=== PATIENT | female | born 1980 | race Caucasian/White ===

== ENCOUNTER 2016-10-11 14:38 | Emergency (ER) | payer SELFPAY ==
[~2016-10-11] VITALS: Ht 167.6 cm; Wt 105.0 kg
[2016-10-11 14:40] VITALS: Ht 167.6 cm; Wt 105.0 kg
[2016-10-11] MEDS ORDERED: morphine 4 MG/ML VIAL IV STA (15:09)
[2016-10-11] MEDS ORDERED: ONDANSETRON 4 MG INJ IV STA (15:09)
--- NOTE | 2016-10-11 15:25 | ERD ---
ER Documentation Chief Complaint Date/Time DATE: 10/11/16 TIME: 15:23 Chief Complaint Right eye pain HPI 36-year-old female comes in with right eye redness and discharge for the past 3 days. Patient denies any history of diabetes, she has been around other sick contacts at home, she is visiting from [place]. Family members have had URI symptoms including "pinkeye", she also developed a cough, congestion as well as right eye irritation and discharge. She states that the swelling has increased in the right lower eyelid. She has has yellow to white greenish discharge, as well as photophobia, notes mild pain with movement and most of irritation from the right lower eyelid. She denies fevers with this. ROS All systems reviewed and are negative except as per history of present illness. Medications Home Meds Active Scripts Gentamicin Sulfate* (Gentafair* Ophth) 0.3% - 5 Ml Drops, 1 DROP RIGHT EYE Q4, # 1 EA Prov:AMIRA DENT PA-C 10/11/16 Sulfamethoxazole-Trimethoprim* (Bactrim* DS) 800-160 Mg Tab, 1 TAB PO BID for 10 Days, TAB Prov:AMIRA DENT PA-C 10/11/16 Amoxicillin/Potassium Clav (Amox-Clav 875-125 mg Tablet) 875-125 mg Tab, 1 TAB PO BID for 10 Days, #20 TAB Prov:AMIRA DENT PA-C 10/11/16 Allergies Allergies: Coded Allergies: No Known Allergy (Unverified , 09/17/11) PMhx/Soc Medical and Surgical Hx: pt denies Medical Hx, pt denies Surgical Hx History of Surgery: No Anesthesia Reaction: No Hx Neurological Disorder: No Hx Respiratory Disorders: No Hx Cardiac Disorders: No Hx Psychiatric Problems: No Hx Miscellaneous Medical Probl: No Hx Alcohol Use: No Hx Substance Use: No Hx Tobacco Use: Yes (3cig/day) Smoking Status: Current every day smoker Physical Exam Vitals Vital Signs Date Time Temp Pulse Resp B/P Pulse Ox O2 Delivery O2 Flow Rate FiO2 10/11/16 14:40 98.7 100 18 139/87 98 Physical Exam \\General: Well-developed, well-nourished. The patient appears in no acute distress. HEENT: Head is normocephalic, atraumatic. No scleral icterus. Pupils are equal , round, and reactive. Oral mucous membranes are moist. No pharyngeal erythema. Eye Exam: OXO Visual Gracia: Intact in all four quadrants bilaterally Lac ducts/glands: Right lower eyelid in the lateral half is swollen, mildly fluctuant. Tender to palpation. Draining pus. Lids w/ evertion: Normal, no foreign body Conj/Melrose: erythematous, negative Fluorescein/Justyna's Anterior Chamber: Clear Tonopen readings: 24 and 26 Neck: Supple. Nontender. Lungs: Clear to auscultation. Normal air movement. Heart: Regular rate and rhythm. S1 and S2 are normal. No murmurs, gallops, or rubs. Abdomen: Soft, nontender, nondistended. Bowel sounds are normoactive. Extremities: No clubbing or cyanosis. Normal pulses. Moving extremities x 4. No weakness. Neurologic: Alert and oriented 3. No focal deficits. Skin: Normal turgor. No rash or lesions. Result Diagram: 10/11/16 1530 10/11/16 1530 Results 24 hrs Laboratory Tests Test 10/11/16 15:30 Anion Gap 18 Basophils # 0.110^3/ul Basophils % 0.8% Blood Urea Nitrogen 10mg/dl Calcium Level 9.5mg/dl Carbon Dioxide Level 29mmol/L Chloride Level 102mmol/L Creatinine 0.77mg/dl Eosinophils # 0.210^3/ul Eosinophils % 1.3% Glucose Level 81mg/dl Hematocrit 43.2% Hemoglobin 14.3g/dl Lymphocytes # 2.310^3/ul Lymphocytes % 16.0% Mean Corpuscular Hemoglobin 29.2pg Mean Corpuscular Hemoglobin Concent 33.1g/dl Mean Corpuscular Volume 88.2fl Mean Platelet Volume 7.7fl Monocytes # 1.210^3/ul Monocytes % 8.1% Neutrophils # 10.510^3/ul Neutrophils % 73.8% Nucleated Red Blood Cells # 0.010^3/ul Nucleated Red Blood Cells % 0.0/100WBC Platelet Count 58907^3/UL Potassium Level 4.0mmol/L Red Blood Count 4.9010^6/ul Red Cell Distribution Width 12.7% Sodium Level 145mmol/L White Blood Count 14.210^3/ul Current Medications Medications (Trade) Dose Ordered Sig/Cherry Route PRN Reason Start Time Stop Time Status Last Admin Dose Admin Morphine Sulfate (morphine) 4 mg ONCE STAT IV 10/11/16 15:09 10/11/16 15:13 DC 10/11/16 15:30 Ondansetron HCl 4 mg 4 mg ONCE STAT IV 10/11/16 15:09 10/11/16 15:13 DC 10/11/16 15:30 Vancomycin HCl 250 ml @ 125 mls/hr ONCE IVPB 10/11/16 15:30 10/11/16 17:29 DC 10/11/16 16:49 Ceftriaxone Sodium (Rocephin) 50 ml @ 100 mls/hr ONCE ONCE IVPB 10/11/16 15:30 10/11/16 15:59 DC 10/11/16 15:30 Fluorescein Sodium (Pelxu-O-Qfhch) 1 strip ONCE ONCE RIGHT EYE 10/11/16 15:30 10/11/16 15:31 DC 10/11/16 15:30 Tetracaine HCl 1 drop 1 drop ONCE ONCE RIGHT EYE 10/11/16 15:30 10/11/16 15:31 DC 10/11/16 15:30 Sodium Chloride (NS) 1,000 ml @ 1,000 mls/hr Q1H ONCE IV 10/11/16 15:30 10/11/16 16:29 DC 10/11/16 15:29 IV Flush 10 ml 10 ml STK-MED ONCE .ROUTE 10/11/16 16:19 10/11/16 16:20 DC 10/11/16 16:29 Sodium Chloride (NS) 100 ml @ ud STK-MED ONCE .ROUTE 10/11/16 16:19 10/11/16 16:20 DC 10/11/16 16:29 Iohexol (Omnipaque 300mg/ ml) 150 ml STK-MED ONCE .ROUTE 10/11/16 16:19 10/11/16 16:20 DC 10/11/16 16:29 PROCEDURE: CT Orbits with contrast. CLINICAL INDICATION: Right eye swelling, erythem and drainage TECHNIQUE: A CT of the orbits was performed on a multidetector CT scanner utilizing thin section axial images without the use of intravenous contrast. Sagittal and coronal reformatted images were made. 100 ml Omnipaque-300 intravenous contrast administered without complication. The CTDIvol is 52.88 mGy and the DLP is 558.64 mGycm.One of the following dose reduction techniques were utilized: Automated dense exposure control, adjustment of the mAand/or kV according to patient's size, use of iterative reconstruction technique COMPARISON: None. FINDINGS: Extensive right janay orbital preseptal subcutaneous soft tissue edema and/or soft tissue stranding compatible with cellulitis. Along the lateral inferior eyelid peripherally no there is a more focal area of low attenuation no measuring measuring 1.4 x 0.6 x 1.1 cm in transverse, AP, and craniocaudal dimensions respectively suspicious for early abscess formation. There is no evidence of intra or extra pleural orbital extension or inflammatory process. The globe is intact. The left globe is unremarkable. The extraocular muscles and optic nerves are bilaterally symmetric and normal in appearance. The globes are unremarkable. The lacrimal glands appear normal. No abnormal attenuation of the intra or extraconal fat is identified. The sella turcica is unremarkable. Lobulated mucosal thickening within the left maxillary sinus with small fluid level compatible with acute and chronic inflammatory change. Minimal mucosal thickening in the right maxillary sinus, ethmoid air cells, and sphenoid sinuses bilaterally. IMPRESSION: 1. Marked inflammatory changes of the right periorbital preseptal soft tissues compatible with cellulitis. Superimpose 1.4 x 0.6 x 1.1 cm focal area of low attenuation along the lateral inferior aspect of the right eyelid most compatible with early abscess formation. 2. No intraorbital extension of inflammatory process on the right. 3. Normal appearance of the left orbit. 4. Acute chronic inflammatory changes of the paranasal RPTAT:AAJJ Physician Brady Date Time Electronically viewed and signed by Physician Brady on 10/11/2016 17:07 Procedures/MDM ED course: IV line was established, blood was obtained. She was started on Rocephin and vancomycin IV. Morphine 2 mg and Zofran 4 mg were administered for pain. MDM: 36-year-old female comes in with periorbital cellulitis with abscess seen on the right lower eyelid. CT of the orbits shows abscess, periorbital's changes however no intraorbital findings. She was given Rocephin and vancomycin , pressures are normal, no evidence of any uptake with the fluorescein staining. She was advised to have close follow-up with action installer, to recheck in the next 1-2 days. She should return for any worsening symptoms including fever, pain or swelling. Departure Diagnosis: Primary Impression: Abscess of right periorbital region Additional Impression: Periorbital cellulitis of right eye Condition: AMIRA Garcia PA-C Oct 11, 2016 15:25
[2016-10-11] MEDS ORDERED: TETRACAINE 0.5% 15 ML OPH RIGHT EYE ONE (15:30)
[2016-10-11] MEDS ORDERED: CEFTRIAXONE 1 GM/50 ML (PMX) 50 ML IVPB ONE (15:30)
[2016-10-11] MEDS ORDERED: VANCOMYCIN 1 GM (PMX) 250 ML IVPB SCH (15:30)
[2016-10-11] MEDS ORDERED: SOD CHLORIDE 0.9% 1,000 ML IV ONE (15:30)
[2016-10-11] MEDS ORDERED: FLUORESCEIN STRIP RIGHT EYE ONE (15:30)
[2016-10-11 15:39] LABS: BASOPHIL # 0.1 10^3/ul (0.0-0.1); BASOPHILS % 0.8 % (0.0-2.0); EOSINOPHILS # 0.2 10^3/ul (0.0-0.5); EOSINOPHILS % 1.3 % (0.0-7.0); HEMATOCRIT 43.2 % (37.0-47.0); HEMOGLOBIN 14.3 g/dl (12.0-16.0); LYMPHOCYTES # 2.3 10^3/ul (0.8-2.9); MEAN CORPUSCULAR HEMOGLOBIN 29.2 pg (29.0-33.0); MEAN CORPUSCULAR HGB CONC 33.1 g/dl (32.0-37.0); MEAN CORPUSCULAR VOLUME 88.2 fl (82.0-101.0); MEAN PLATELET VOLUME 7.7 fl (7.4-10.4); MONOCYTE # 1.2 10^3/ul (0.3-0.9); MONOCYTES % 8.1 % (0.0-11.0); NEUTROPHIL # 10.5 10^3/ul (1.6-7.5); NEUTROPHILS % 73.8 % (39.0-77.0); PLATELET COUNT 325 10^3/UL (140-440); RED CELL DISTRIBUTION WIDTH 12.7 % (11.5-14.5); UNCORRECTED WBC 14.2 10^3/ul (4.8-10.8); WHITE BLOOD COUNT 14.2 10^3/ul (4.8-10.8)
[2016-10-11 15:40] LABS: CONDITION 1
[2016-10-11 15:57] LABS: CALCIUM 9.5 mg/dl (8.4-10.2); CREATININE 0.77 mg/dl (0.44-1.00)
[2016-10-11] MEDS ORDERED: IOHEXOL 300MG/ML 150 ML BTL ONE (16:19)
[2016-10-11] MEDS ORDERED: SOD CHLORIDE 0.9% 100 ML ONE (16:19)
--- NOTE | 2016-10-11 17:07 | RADRPT ---
PROCEDURE: CT Orbits with contrast. CLINICAL INDICATION: Right eye swelling, erythem and drainage TECHNIQUE: A CT of the orbits was performed on a multidetector CT scanner utilizing thin section a xial images without the use of intravenous contrast. Sagittal and coronal reformatted images were m radha. 100 ml Omnipaque-300 intravenous contrast administered without complication. The CTDIvol is 52. 88 mGy and the DLP is 558.64 mGycm.One of the following dose reduction techniques were utilized: A utomated dense exposure control, adjustment of the mAand/or kV according to patient's size, use of i terative reconstruction technique COMPARISON: None. FINDINGS: Extensive right janay orbital preseptal subcutaneous soft tissue edema and/or soft tissue stranding c ompatible with cellulitis. Along the lateral inferior eyelid peripherally no there is a more focal a tasha of low attenuation no measuring measuring 1.4 x 0.6 x 1.1 cm in transverse, AP, and craniocaudal dimensions respectively suspicious for early abscess formation. There is no evidence of intra or extra pleural orbital extension or inflammatory process. The globe is intact. The left globe is unremarkable. The extraocular muscles and optic nerves are bilaterally symmetric and normal in appearance. The gl obes are unremarkable. The lacrimal glands appear normal. No abnormal attenuation of the intra or extraconal fat is identified. The sella turcica is unremarkable. Lobulated mucosal thickening within the left maxillary sinus with small fluid level compatible with acute and chronic inflammatory change. Minimal mucosal thickening in the right maxillary sinus, eth moid air cells, and sphenoid sinuses bilaterally. IMPRESSION: 1. Marked inflammatory changes of the right periorbital preseptal soft tissues compatible with cell ulitis. Superimpose 1.4 x 0.6 x 1.1 cm focal area of low attenuation along the lateral inferior asp ect of the right eyelid most compatible with early abscess formation. 2. No intraorbital extension of inflammatory process on the right. 3. Normal appearance of the left orbit. 4. Acute chronic inflammatory changes of the paranasal RPTAT:AAJJ Physician Brady Date Time Electronically viewed and signed by Physician Brady on 10/11/2016 17:07 TIMUR/
[2016-10-11] MEDS ORDERED: GENT5DRO28 RIGHT EYE (17:29)
[2016-10-11] MEDS ORDERED: BACTDS PO (17:29)
[2016-10-11] MEDS ORDERED: AMOX1TAB10 PO (17:29)
[2016-10-11 18:38] VITALS: BP 131/66; PULSE 80; RESP 16; TEMP 98.2
== END 2016-10-11 18:40 | disposition home or self-care (01) ==
LOC: FTE 14:38
DX: H05.011 Cellulitis of right orbit (principal); R11.2 Nausea with vomiting, unspecified
CPT/HCPCS: 36415; 70480; 80048; 85025; 96374; 96375; 99285; J0696; J2270; J2405; J3370; J7030; Q9967